=== PATIENT | male | born 1985 | race Caucasian/White ===

== ENCOUNTER 2018-12-01 15:27 | Emergency (ER) | payer BC, OTHER ==
[2018-12-01 16:43] VITALS: BP 129/90
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
== END 2018-12-01 16:42 | disposition home or self-care (01) ==
LOC: ED 15:27
DX: S80.02XA Contusion of left knee, initial encounter (principal); S80.01XA Contusion of right knee, initial encounter; Y35.811A Legal intervention involving manhandling, law enforcement official injured, initial encounter; Y99.0 Civilian activity done for income or pay; M54.5 Low back pain
CPT/HCPCS: 99282